=== PATIENT | female | born 1980 | race Caucasian/White ===

== ENCOUNTER → 2021-01-27 07:23 | Outpatient (CLI) | payer OTHER, SELFPAY ==
[2021-01-27 18:26] LABS: SARS-CoV-2 RNA PCR Negative
== END ==
PROVIDERS: PCP Physician Assistant; Visit Provider Physician Assistant
DX: Z20.822 Contact with and (suspected) exposure to COVID-19 (principal)
CPT/HCPCS: C9803; U0003; U0005

== ENCOUNTER → 2021-06-08 02:19 | Outpatient (CLI) | payer OTHER, SELFPAY ==
[2021-06-08 19:55] LABS: SARS-CoV-2 RNA PCR Positive
== END ==
PROVIDERS: PCP Physician Assistant; Visit Provider Physician Assistant
DX: U07.1 COVID-19 (principal)
CPT/HCPCS: C9803; U0003; U0005

== ENCOUNTER → 2021-12-27 11:29 | Outpatient (CLI) | payer OTHER, SELFPAY ==
--- NOTE | ~2021-12-27 | XR_ITS ---
EXAMINATION: XR foot LT min 3V DATE: 12/27/2021 11:50 INDICATION: Left foot pain TECHNIQUE: Dorsoplantar, lateral, and 2 oblique views of the left foot were obtained. COMPARISON: 05/24/2019 FINDINGS: There is no fracture, dislocation, or subluxation. The bones, soft tissues, and joint space s are normal. IMPRESSION: 1. No acute osseous abnormality. Reviewed, dictated and finalized at location B.
== END ==
PROVIDERS: PCP Physician Assistant; Visit Provider Physician Assistant
DX: M79.672 Pain in left foot (principal)
CPT/HCPCS: 73630

== ENCOUNTER → 2022-02-21 10:38 | Outpatient (CLI) | payer OTHER, SELFPAY ==
--- NOTE | ~2022-02-21 | MM_ITS ---
EXAMINATION: MM screening [facility] BI [facility] HISTORY: Baseline screening mammogram TECHNIQUE: Craniocaudal and mediolateral oblique 3-D tomosynthesis images were obtained and synthetic 2-D images were generated. CAD analysis was submitted and interpreted. COMPARISON: None, baseline BREAST PARENCHYMAL COMPOSITION: There are scattered areas of fibroglandular density. FINDINGS: Masses in the upper outer quadrant of the right breast with central low-attenuation are con sistent with intramammary lymph nodes. There is no suspicious mass, calcification, or architectural d istortion to suggest malignancy in either breast. IMPRESSION: 1. No mammographic evidence of malignancy. 2. Recommend routine screening mammography in one year. BI-RADS Category 2: Benign finding(s). Reviewed, dictated and finalized at location A.
== END ==
PROVIDERS: PCP Physician Assistant; Visit Provider Physician Assistant
DX: Z12.31 Encounter for screening mammogram for malignant neoplasm of breast (principal)
CPT/HCPCS: 77063; 77067

== ENCOUNTER → 2023-05-01 14:08 | Outpatient (CLI) | payer OTHER, SELFPAY ==
--- NOTE | ~2023-05-01 | MM_ITS ---
EXAMINATION: MM screening [facility] HISTORY: Screening mammogram TECHNIQUE: Craniocaudal and mediolateral oblique 3-D tomosynthesis images were obtained and synthetic 2-D images were generated. CAD analysis was submitted and interpreted. COMPARISON: 02/21/2022 BREAST PARENCHYMAL COMPOSITION: The breasts are heterogeneously dense, which may obscure small masses . FINDINGS: No suspicious mass, calcification, or architectural distortion are identified in either charu ast to suggest malignancy. There has been no suspicious interval change. IMPRESSION: 1. No mammographic evidence of malignancy. 2. Recommend routine screening mammography in one year. BI-RADS Category 1: Negative Reviewed, dictated and finalized at location A.
== END ==
PROVIDERS: PCP Physician Assistant; Visit Provider Physician Assistant
DX: Z12.31 Encounter for screening mammogram for malignant neoplasm of breast (principal)
CPT/HCPCS: 77063; 77067

== ENCOUNTER 2023-12-17 09:19 | Emergency (ER) | payer OTHER, SELFPAY ==
--- NOTE | ~2023-12-17 | XR_ITS ---
XR abdomen/kub 1V DATE: 12/17/2023 10:14 INDICATION: Low abdominal pain starting yesterday morning TECHNIQUE: AP view COMPARISON: None FINDINGS: The splenic and right renal silhouettes are not obvious. Left renal silhouette is is well d emonstrated. The psoas shadows are intact. No evidence of bowel obstruction. Included skeletal structures are unremarkable. IMPRESSION: Splenic and right renal silhouettes are not obviously demonstrated. Small or absent right renal kidney is suspected. Otherwise nonspecific abdomen Reviewed, dictated and finalized at Location A. Reviewed, dictated and finalized at location A.
[2023-12-17 09:30] VITALS: BP 126/69; PULSE 68; RESP 16; TEMP 36.2; O2SAT 100
--- NOTE | 2023-12-17 09:51 | ED.GENADULT ---
HPI - General Adult General Chief complaint: Abdominal Pain Stated complaint: Abdominal Pain,Lower Back Pain Time Seen by Provider: 12/17/23 09:52 Source: patient Mode of arrival: ambulatory Limitations: no limitations History of Present Illness HPI narrative: 43-year-old female presents to clinic today with complaints of lower abdominal pain and low back pain that started yesterday with a sudden onset. Patient states that when it started she had a hot flash and then had a couple chills yesterday but no fevers or body aches. patient states she has been having symptoms of urgency throughout the night was not able to sleep well and denies symptoms of discomfort or pain while urinating. patient states she has never had symptoms like this before. Patient states she started her menstrual cycle on the 09 of December and was done on the . Patient reports being sexually active with her on Monday and symptoms started Monday. Patient has no concerns for STIs at this time. Related Data Allergies Allergy/AdvReac Type Severity Reaction Status Date / Time No Known Allergies Allergy Verified 12/17/23 09:35 Review of Systems Review of Systems: CONSTITUTIONAL: Denies fever, positive occasional chills, and denies sweats. EYES: Denies visual changes, redness, or discharge. ENT: Denies rhinorrhea, congestion, sore throat, or otalgia. CARDIOVASCULAR: Denies chest pain, palpitations, or edema. RESPIRATORY: Denies cough or dyspnea. GASTROINTESTINAL: Denies lower abdominal pain and lower back pain. denies nausea, vomiting, or diarrhea. GENITOURINARY: Denies dysuria or hematuria. SKIN: Denies rash or itching. MUSCULOSKELETAL: Denies back pain, joint pain, or myalgia. NEUROLOGIC: Denies headache, numbness, or weakness. PSYCHIATRIC: Denies anxiety or depression. [facility] Family History Family History (Updated 12/17/23 @ 09:53 by MAGDALENO Yo) Other Diabetes mellitus Heart disease Hypertension Comments At the time of my signature I agree with nursing past medical history, surgical, social, and family history. There is no relevant family history pertinent to the presenting complaint. Exam Narrative: GENERAL: Well-appearing, well-nourished, and in no acute distress. HEAD: Normocephalic, atraumatic. EYES: PERRLA and EOMI. ENT: Nares clear, no rhinorrhea or epistaxis. Mucous membranes moist. NECK: Supple. No lymphadenopathy CHEST: Clear to auscultation. No respiratory distress. HEART: Regular rate and rhythm. No murmur heard. Normal peripheral pulses. ABDOMEN: Soft, nontender, nondistended, normal active bowel sounds. positive suprapubic tenderness on palpation. negative CVA tenderness bilaterally to percussion and negative lower back pain on palpation. EXTREMITIES: Normal range of motion. No edema. SKIN: Warm, dry, no rash. NEURO: No focal deficits. Alert and oriented x3. Course Course Level of Care: Express Care Visit Reevaluation(s) Reevaluation #1: re-evaluated patient after KUB resulted. Discussed with patient that the KUB only sees 1 kidney on the left side does not visualize any kidney on the right side. Discussed with patient that this could be due to bad imaging on our part or could be that she was only born with 1 kidney. Discussed with patient that I highly recommend that she follow-up with her primary doctor and possibly obtain an ultrasound to further investigate this and a copy of the x-ray was provided to the patient today. Given the fact the patient is coming in with dysuria symptoms will go ahead and treat her with antibiotics today and send her urine off for culture. Discussed with patient if she has any worsening symptoms highly recommend that she go to the ER for further evaluation and treatment. Patient verbalized understanding denies any other questions or concerns at this time. Date: 12/17/23 Time: 10:54 Vital Signs Vital signs: Vital Signs Temperature 36.2 C L
== END 2023-12-17 11:13 | disposition home or self-care (01) ==
PROVIDERS: Emergency Provider Nurse Practitioner Family; PCP Physician Assistant
DX: R30.0 Dysuria (principal); Q60.0 Renal agenesis, unilateral
CPT/HCPCS: 74018; 81003; 81025; 87086; 87088; 99213; G0463

== ENCOUNTER 2023-12-22 12:53 | Outpatient (CLI) | payer OTHER, SELFPAY ==
--- NOTE | ~2023-12-22 | CT_ITS ---
EXAMINATION: CT abdomen pelvis wo/w con DATE: 12/22/2023 13:37 INDICATION: Abnormal findings on diagnostic imaging of the urinary organs with hematuria TECHNIQUE: Computed tomography (CT) of the abdomen and pelvis was performed without intravenous contr ast. CT of the abdomen and pelvis was then performed with a total of 130 mL Omnipaque-350 intravenous contrast using a double-bolus technique for simultaneous opacification of the renal parenchyma and r enal collecting system. Automated exposure control and iterative reconstruction technique were employ ed. The dose-length product was 1481.29 mGy-cm. COMPARISON: None FINDINGS: CT UROGRAM: Lung bases are clear. Heart size is normal. No pericardial or pleural effusion. Liver, gallbladder, s pleen, pancreas and bilateral adrenal glands are normal. Severely atrophic right kidney. Mild compens atory hypertrophy of the left kidney. No urolithiasis. The left ureter is opacified in its near entir ety with no evident urothelial irregularities along the contrast opacified left renal collecting syst em and ureter. Bowels including the appendix are normal. Bladder and retroverted uterus are normal. B ilateral ovarian cysts/follicles the largest on the right measuring 2.0 cm. Trace amount of likely ph ysiologic free fluid in the cul-de-sac. No abscess or free intraperitoneal gas. No pathologically enl arged abdominal or pelvic lymphadenopathy. Bones are unremarkable. IMPRESSION: 1. Severely atrophic right kidney with mild compensatory hypertrophy of the left kidney. Reviewed, dictated and finalized at location B. IMPRESSION: 1. Severely atrophic right kidney with mild compensatory hypertrophy of the lef t kidney.
[2023-12-22 13:15] LABS: Estimated Glomerular Filt Rate > 60
== END 2023-12-22 12:54 ==
PROVIDERS: PCP Physician Assistant; Visit Provider Physician Assistant
DX: R93.41 Abnormal radiologic findings on diagnostic imaging of renal pelvis, ureter, or bladder (principal)
CPT/HCPCS: 36415; 74178; Q9967

== ENCOUNTER 2024-01-24 15:59 | Outpatient (CLI) | payer OTHER, SELFPAY ==
[2024-01-24 17:25] LABS: Erythrocyte Sedimentation Rate 17 mm/hr (0-20)
[2024-01-24 17:33] LABS: Rheumatoid Factor < 12.0 IU/ML (<12)
[2024-01-26 13:54] LABS: Anti Glomerular Basement Memb <1.0 AI
[2024-01-26 14:03] LABS: SM Antibody <1.0 NEG AI (<1.0 NEG); SM/RNP Antibody <1.0 NEG AI (<1.0 NEG); SS-A <1.0 NEG AI (<1.0 NEG); SS-B <1.0 NEG AI (<1.0 NEG)
[2024-01-27 12:38] LABS: ANCA Screen NEGATIVE (NEGATIVE)
== END 2024-01-24 16:00 | disposition home or self-care (01) ==
LOC: ANHLAB 16:00
PROVIDERS: PCP Physician Assistant; Visit Provider Internal Medicine Nephrology
DX: R31.9 Hematuria, unspecified (principal); N27.0 Small kidney, unilateral; R76.0 Raised antibody titer
CPT/HCPCS: 36415; 82595; 83520; 85652; 86036; 86038; 86225; 86235; 86430

== ENCOUNTER 2024-01-31 07:51 | Outpatient (CLI) | payer OTHER, SELFPAY ==
--- NOTE | ~2024-01-31 | US_ITS ---
US renal BI 01/31/2024 08:12 Procedure: Realtime transabdominal ultrasound of the kidneys and bladder. Indication: Atrophic right kidney. Microscopic hematuria. Comparison: CT dated 12/22/2023 Findings: Left renal echotexture is normal bilaterally without hydronephrosis, contour deforming mass or renal calculus. Right kidney not visualized. Left kidney measures 13.2 cm. Bladder within normal limits. Impression: 1: Right kidney not visualized, likely either developmentally or surgically absent. Otherwise, unrema rkable renal ultrasound. Reviewed, dictated and finalized at location B. Impression: 1: Right kidney not visualized, likely either developmentally or surgically abs ent. Otherwise, unremarkable renal ultrasound.
== END 2024-01-31 07:52 ==
PROVIDERS: PCP Physician Assistant; Visit Provider Internal Medicine Nephrology
DX: N27.0 Small kidney, unilateral (principal)
CPT/HCPCS: 76775

== ENCOUNTER 2024-02-14 09:26 | Outpatient (CLI) | payer OTHER, SELFPAY ==
[2024-02-14 10:24] LABS: Sodium Urine Random 198 meq/L
[2024-02-14 10:27] LABS: Creatinine Urine 168.3 mg/dL
[2024-02-14 10:32] LABS: Sodium 24 Hour Urine 168 mmol/day (40-220); Total Volume 24 Hour Urine 850 ml
[2024-02-14 10:33] LABS: Creatinine 24 Hour Urine 1.4 gm/24 (0.8-1.8); Total Volume 24 Hour Urine 850 ml
== END 2024-02-14 09:27 | disposition home or self-care (01) ==
LOC: ANHLAB 09:27
PROVIDERS: PCP Physician Assistant; Visit Provider Internal Medicine Nephrology
DX: N27.0 Small kidney, unilateral (principal); R60.1 Generalized edema
CPT/HCPCS: 81050; 82570; 84300

== ENCOUNTER 2024-06-06 13:35 | Outpatient (CLI) | payer OTHER, SELFPAY ==
[2024-06-06 13:59] LABS: Add Urine Microscopic? YES; Appearance Urine Cloudy (Clear); Bacteria Urine Rare /hpf; Bilirubin Urine Negative (Negative); Blood Urine 2+ (Negative); Color Urine Yellow (Yellow); Glucose Urine UA Negative (Negative); Ketones Urine Trace mg/dL (Negative); Leukocyte Esterase Ur 2+ LEU/UL (Negative); Nitrate Urine Negative (Negative); Non Pathogenic Casts 0-2; Protein Urine Negative (Negative); Squamous Epithelial Cell Urine Few /hpf (Few); Urobilinogen Urine 0.2 mg/dL (<2.0); WBC Urine 51-100 /hpf (0-3); pH Urine 5.5 (5.0-9.0)
[2024-06-06 14:18] LABS: Albumin Level 4.4 g/dL (3.5-5.1); Anion Gap 9 mmol/L (4-12); Blood Urea Nitrogen 14 mg/dL (7-17); Calcium 9.2 mg/dL (8.4-10.2); Carbon Dioxide 27 mmol/L (22-30); Chloride 100 mmol/L (98-107); Estimated Glomerular Filt Rate > 60; Glucose 90 mg/dL (65-110); Phosphorus 3.2 mg/dL (2.5-4.5); Potassium 3.7 mmol/L (3.4-5.0); Sodium 136 mmol/L (137-145)
[2024-06-06 15:18] LABS: Creatinine Urine 107.8 mg/dL; Total Protein Urine Random 8 mg/dL; Ur Ttl Prot Creatinine Ratio 0.07 mg/mg (0-0.20)
[2024-06-13 19:09] LABS: Cryoglobulin, QL Negative (Negative)
== END 2024-06-06 13:36 | disposition home or self-care (01) ==
LOC: ANHLAB 13:36
PROVIDERS: PCP Physician Assistant; Visit Provider Internal Medicine Nephrology
DX: N27.0 Small kidney, unilateral (principal); R76.0 Raised antibody titer
CPT/HCPCS: 36415; 80069; 81001; 82570; 82595; 84156

== ENCOUNTER 2024-07-31 10:26 | Outpatient (CLI) | payer OTHER, SELFPAY ==
--- NOTE | ~2024-07-31 | MM_ITS ---
EXAMINATION: MM screening [facility] HISTORY: Screening TECHNIQUE: Craniocaudal and mediolateral oblique 3-D tomosynthesis images were obtained and synthetic 2-D images were generated. CAD analysis was submitted and interpreted. COMPARISON: Comparison to multiple prior studies sequentially, with oldest reviewed study dated 02/21. BREAST PARENCHYMAL COMPOSITION: Not dense: There are scattered areas of fibroglandular density. FINDINGS: There is no evidence of suspicious mass, calcification, or architectural distortion to sugg est malignancy in either breast. There has been no suspicious interval change. IMPRESSION: 1. No mammographic evidence of malignancy. 2. Recommend routine screening mammography in one year. BI-RADS Category 1: Negative Reviewed, dictated and finalized at location B.
== END 2024-07-31 10:27 | disposition home or self-care (01) ==
LOC: MICIMG 10:26
PROVIDERS: PCP Physician Assistant; Visit Provider Physician Assistant
DX: Z12.31 Encounter for screening mammogram for malignant neoplasm of breast (principal)
CPT/HCPCS: 77063; 77067

== ENCOUNTER 2024-09-04 09:04 | Outpatient (CLI) | payer OTHER, SELFPAY ==
--- NOTE | ~2024-09-04 | XR_ITS ---
[id number] Ordering provider: Chantelle Gottlieb, BERTHA History: . No injury neck pain for 1 month . Comparison: None. FINDINGS: VERTEBRAL BODIES: Normal height and alignment. No visible fracture or subluxation. The dens is intact . DISK SPACES: Well maintained. PARASPINOUS SOFT TISSUES: No prevertebral soft tissue swelling. IMPRESSION: No acute osseous abnormality cervical spine. Reviewed, dictated and finalized at location A. [employer]
== END 2024-09-04 09:05 | disposition home or self-care (01) ==
PROVIDERS: PCP Physician Assistant; Visit Provider Physician Assistant
DX: M54.2 Cervicalgia (principal)
CPT/HCPCS: 72040